=== PATIENT | female | born 1950 | race Caucasian/White ===

== ENCOUNTER → 2020-05-30 13:48 | Outpatient (BNVA) | payer OTHER, SELFPAY | PROVIDERS: PCP Internal Medicine; Visit Provider Nurse Practitioner Family | DX: M96.1 Postlaminectomy syndrome, not elsewhere classified (principal); M41.25 Other idiopathic scoliosis, thoracolumbar region; M47.816 Spondylosis without myelopathy or radiculopathy, lumbar region | CPT/HCPCS: 99202 ==

== ENCOUNTER 2020-07-10 06:08 | Outpatient (REF) | payer OTHER, SELFPAY | END 2020-07-10 06:09 | disposition home or self-care (01) | LOC: HO.RADIR 06:08 | PROVIDERS: Visit Provider Anesthesiology | DX: M96.1 Postlaminectomy syndrome, not elsewhere classified (principal); M41.25 Other idiopathic scoliosis, thoracolumbar region; M47.816 Spondylosis without myelopathy or radiculopathy, lumbar region | CPT/HCPCS: 76000 ==

== ENCOUNTER → 2020-07-16 14:02 | Outpatient (BNVA) | payer OTHER, SELFPAY | PROVIDERS: PCP Internal Medicine; Visit Provider Anesthesiology | DX: M47.816 Spondylosis without myelopathy or radiculopathy, lumbar region (principal); M96.1 Postlaminectomy syndrome, not elsewhere classified; M42.1 Adult osteochondrosis of spine; Z79.899 Other long term (current) drug therapy | CPT/HCPCS: Q3014 ==